=== PATIENT | male | born 2000 | race African-American/Black ===

== ENCOUNTER 2022-01-12 10:17 | Emergency (ER) | payer MEDICAID ==
[~2022-01-12] VITALS: Ht 177.8 cm; Wt 63.0 kg
[2022-01-12 12:06] LABS: BASOPHILS % 0.5 % (0.0-2.0); EOSINOPHILS % 0.4 % (0.0-5.0); HEMOGLOBIN. 15.3 g/dL (14.0-18.0); LYMPHOCYTES % 11.4 % (20.0-50.0); MEAN CORPUSCULAR HEMOGLOBIN 32.1 pg (28.0-32.0); MEAN CORPUSCULAR VOLUME 94.3 fL (80.0-94.0); MEAN PLATELET VOLUME 8.1 fl (7.4-10.4); MONOCYTES % 5.9 % (2.0-8.0); NEUTROPHILS % 81.8 % (40.0-76.0); PLATELET 231 x1000/uL (130-400); RED BLOOD CELL COUNT 4.77 mill/uL (4.7-6.1); RED CELL DISTRIBUTION WIDTH 13.7 % (11.6-14.6)
[2022-01-12 12:12] LABS: CHLORIDE 103 mEq/L (98-107)
[2022-01-12 12:33] LABS: ETHANOL BLOOD < 10 mg/dL
[2022-01-12 17:51] LABS: CLARITY URINE CLOUDY (CLEAR); COLOR URINE YELLOW (YELLOW); KETONES URINE NEGATIVE (NEGATIVE); LEUKOCYTE ESTERASE URINE NEGATIVE (NEGATIVE); NITRITE URINE NEGATIVE (NEGATIVE); OCCULT BLOOD URINE NEGATIVE (NEGATIVE); PH URINE 8.5 (4.5-8.0); PROTEIN URINE NEGATIVE (NEGATIVE); SPECIFIC GRAVITY URINE 1.019 (1.005-1.030); UROBILINOGEN URINE 0.2 E.U./dL (0.2-1.0)
[2022-01-12 18:11] LABS: *AMPHETAMINES SCREEN URINE NEGATIVE (NEGATIVE); *BARBITURATES SCREEN URINE NEGATIVE (NEGATIVE); *BENZODIAZEPINES SCREEN URINE NEGATIVE (NEGATIVE); *COCAINE SCREEN URINE NEGATIVE (NEGATIVE); CANNABINOID URINE SCREEN NEGATIVE (NEGATIVE); METHADONE URINE SCREEN NEGATIVE (NEGATIVE); OPIATES URINE SCREEN NEGATIVE (NEGATIVE); PHENCYCLIDINE URINE SCREEN NEGATIVE (NEGATIVE)
[2022-01-12] MEDS ORDERED: DIPHENHYDRAMINE 50MG CAPSULE PO ONE (23:30)
[2022-01-13] MEDS: RISPERIDONE 1MG TABLET PO SCH ×2 (11:48→22:00)
[2022-01-14] MEDS: RISPERIDONE 1MG TABLET PO SCH ×2 (09:08→21:59)
[2022-01-14] MEDS ORDERED: LORAZEPAM 1MG TABLET PO ONE (14:00)
[2022-01-14] MEDS ORDERED: OLANZAPINE 5MG TABLET ODT PO ONE (14:00)
[2022-01-15] MEDS: RISPERIDONE 1MG TABLET PO SCH (09:25)
[2022-01-15 13:21] VITALS: BP 121/65
== END 2022-01-15 13:23 ==
LOC: ER 10:48
DX: F20.9 Schizophrenia, unspecified (principal); R45.851 Suicidal ideations; Z20.822 Contact with and (suspected) exposure to COVID-19
CPT/HCPCS: 36415; 70450; 80053; 80305; 80307; 80320; 80329; 81003; 84443; 84484; 85025; 85651; 87426; 93005; 99285; C9803; Q0163; G0480